=== PATIENT | female | born 1970 | race Caucasian/White ===

== ENCOUNTER 2016-04-02 17:07 | Inpatient (IN) | payer OTHER ==
[~2016-04-02] VITALS: Ht 154.9 cm; Wt 92.5 kg
[2016-04-02] VITALS (7 sets, daily range): BP systolic 133–156; BP diastolic 74–101
[~2016-04-02 17:07] MED LIST: PRENATAL VITAM1 EAC8 PO
[2016-04-02] MEDS ORDERED: ZYRTEC10 M3 PO (17:44)
[2016-04-02 20:12] LABS: HEMATOCRIT 30.4 % (36.0-46.0); MCH 30.6 PG (29.0-34.0); MCHC 34.2 G/DL (30.0-36.0); MCV 89.4 FL (83-99); MEAN PLAT.VOLUME 10.8 uM^3 (9.5-12.4); PLATELET COUNT 174 K/uL (156-360); RBC DIS.WIDTH-CV 13.9 % (11.8-14.6); RBC DIS.WIDTH-SD 45.7 % (39-53); WHITE BLOOD COUNT 9.3 K/uL (4.1-10.2)
[2016-04-02 20:15] LABS: EOSINOPHIL (%) 0.8 % (0-5); EOSINOPHIL COUNT 0.1 K/uL (0-0.3); IMMATURE GRANULOCYTE (%) 0.4 % (0.0-0.7); MONOCYTE (%) 5.9 % (3-12); MONOCYTE COUNT 0.6 K/uL (0-0.8); NEUTROPHIL (%) 71.6 % (45-76); NEUTROPHIL COUNT 6.6 K/uL (1.8-6.4)
[2016-04-03] VITALS (28 sets, daily range): BP systolic 118–156; BP diastolic 63–103
[2016-04-04] VITALS (13 sets, daily range): BP systolic 116–167; BP diastolic 74–93
[2016-04-04] MEDS ORDERED: IBUPROFEN800 MG PO (01:02)
[2016-04-05] VITALS (7 sets, daily range): BP systolic 128–154; BP diastolic 75–92
[2016-04-06 04:08] VITALS: BP 141/81
[2016-04-06 07:33] VITALS: BP 141/85
== END 2016-04-06 14:40 | disposition home or self-care (01) | DRG 774 ==
LOC: LDRP-OP 17:07 → 2WEST 17:08 → LDRP-OP 05-10 16:32
PROVIDERS: Nurse Practitioner
PROC: 3E0P7GC Introduction of Other Therapeutic Substance into Female Reproductive, Via Natural or Artificial Opening (ICD-10-PCS; 2016-04-02)
PROC: 10907ZC Drainage of Amniotic Fluid, Therapeutic from Products of Conception, Via Natural or Artificial Opening (ICD-10-PCS; 2016-04-03)
PROC: 3E0S3BZ Introduction of Anesthetic Agent into Epidural Space, Percutaneous Approach (ICD-10-PCS; 2016-04-03)
PROC: 10E0XZZ Delivery of Products of Conception, External Approach (ICD-10-PCS; principal; 2016-04-04)
DX: O10.02 Pre-existing essential hypertension complicating childbirth (principal); Z37.0 Single live birth; Z3A.39 39 weeks gestation of pregnancy; O09.513 Supervision of elderly primigravida, third trimester; O99.824 Streptococcus B carrier state complicating childbirth; O63.0 Prolonged first stage (of labor); E66.9 Obesity, unspecified; O99.214 Obesity complicating childbirth; Z68.38 Body mass index [BMI] 38.0-38.9, adult
CPT/HCPCS: 85025; C1755; C1776; G0378; J2405; J2540; J3010; J7120

== ENCOUNTER → 2016-06-29 | Outpatient (CLI) | payer OTHER ==
[~2016-06-29] MED LIST changes: +IBUPROFEN800 MG PO; +ZYRTEC10 M3 PO
== END | disposition home or self-care (01) ==
LOC: CDC 15:30
DX: Z01.810 Encounter for preprocedural cardiovascular examination (principal)
CPT/HCPCS: 93000

== ENCOUNTER 2016-07-17 10:05 | Day surgery (SDC) | payer OTHER ==
[~2016-07-17] VITALS: Ht 154.9 cm; Wt 83.9 kg
[~2016-07-17 10:05] MED LIST changes: +PRENATAL TABLE1 EACH PO
[2016-07-17 10:34] VITALS: BP 138/76
[2016-07-17] MEDS ORDERED: ENDOCET 5-3251 EACH PO (12:20)
[2016-07-17] MEDS ORDERED: IBUPROFEN800 MG PO (12:20)
[2016-07-17 13:25] VITALS: BP 110/67
[2016-07-17 14:22] VITALS: BP 122/77
[2016-07-20 16:23] LABS: INTERNAL CONTROL VALID? YES
== END 2016-07-17 14:30 | disposition home or self-care (01) ==
LOC: SDC
PROVIDERS: Obstetrics & Gynecology
PROC: 0UT74ZZ Resection of Bilateral Fallopian Tubes, Percutaneous Endoscopic Approach (ICD-10-PCS; principal; 2016-07-17)
DX: Z30.2 Encounter for sterilization (principal); I10 Essential (primary) hypertension
CPT/HCPCS: 84703; 88302; J0131; J0690; J1100; J1200; J1885; J2250; J2405; J2710; J3010

== ENCOUNTER 2017-06-17 22:11 | Emergency (ER) | payer OTHER ==
[~2017-06-17] VITALS: Ht 154.9 cm; Wt 85.9 kg
[~2017-06-17 22:11] MED LIST changes: +ENDOCET 5-3251 EACH PO
[2017-06-17 22:25] VITALS: BP 138/94
[2017-06-17 22:50] LABS: HEMATOCRIT 38.7 % (36.0-46.0); HEMOGLOBIN 13.2 G/DL (11.9-15.5); MCH 29.8 PG (29.0-34.0); MCHC 34.1 G/DL (30.0-36.0); MCV 87.4 FL (83-99); PLATELET COUNT 281 K/uL (156-360); RBC DIS.WIDTH-CV 12.5 % (11.8-14.6); RBC DIS.WIDTH-SD 39.9 % (39-53); RED BLOOD COUNT 4.43 M/uL (3.80-5.20); WHITE BLOOD COUNT 11.4 K/uL (4.1-10.2)
[2017-06-17 22:58] LABS: ALBUMIN 4.3 g/dL (3.2-4.8); CHLORIDE 104 mEq/L (99-109); POTASSIUM 3.8 mEq/L (3.7-5.4); SODIUM 141 mEq/L (136-147)
[2017-06-17 23:01] LABS: GLUCOSE 109 mg/dL (70-99); TOTAL PROTEIN 7.6 g/dL (6.4-8.3)
[2017-06-17 23:03] LABS: TOTAL BILIRUBIN 0.3 mg/dL (0.0-1.0)
[2017-06-17 23:04] LABS: ALKALINE PHOSPHATASE 70 IU/L (3-129); CREATININE 0.9 mg/dL (0.6-1.3); GFR ESTIMATE (CALCULATED) > 59 mL/min/
[2017-06-17 23:05] LABS: UREA NITROGEN (BUN) 16 mg/dL (9-23)
[2017-06-17 23:06] LABS: AST (GOT) 16 IU/L (2-34)
[2017-06-17 23:07] LABS: ALT (GPT) 16 IU/L (3-49)
== END 2017-06-18 00:48 | disposition home or self-care (01) ==
LOC: EME 22:11
DX: R42 Dizziness and giddiness (principal); R11.0 Nausea; Z53.21 Procedure and treatment not carried out due to patient leaving prior to being seen by health care provider
CPT/HCPCS: 80053; 81003; 85027